=== PATIENT | female | born 1995 | race Caucasian/White ===

== ENCOUNTER 2017-09-26 11:19 | Emergency (ER) | payer SELFPAY ==
[2017-09-26] MEDS ORDERED: prednisoLONE Soln 15 MG/5 ML UD Cup PO ONE (11:44)
--- NOTE | 2017-09-26 11:45 | EDM.PDOC ---
ED HPI GENERAL MEDICAL PROBLEM - General Chief Complaint: ENT Problem Stated Complaint: COUGH, SORE THROAT Time Seen by Provider: 09/26/17 11:41 Source of Information: Reports: Patient History Limitations: Reports: No Limitations - History of Present Illness INITIAL COMMENTS - FREE TEXT/NARRATIVE: HISTORY AND PHYSICAL: []22-year-old female presenting with sore throat and cough History of Present Illness: []Patient became ill on Wednesday with 2 half days ago Using [id number] medications for discomfort Review of Systems: As per history of present illness and below otherwise all systems reviewed and negative. Past medical history: As per history of present illness and as reviewed below otherwise noncontributory. Surgical history: As per history of present illness and as reviewed below otherwise noncontributory. Social history: No reported history of drug or alcohol abuse. Family history: As per history of present illness and as reviewed below otherwise noncontributory. Physical exam: Alert and oriented female answering questions appropriately sounding quite hoarsely when she is speaking somewhat short of breath with full sentences HEENT: Atraumatic, normocehpalic, pupils reactive, negative for conjunctival pallor or scleral icterus, mucous membranes moist, throat clear, neck supple, nontender, trachea midline. Sinuses were nontender tympanic membrane mild erythema on the right, throat is erythematous. Lungs: Clear to auscultation, breath sounds equal bilaterally, chest non tender. Heart: S1S2, regular, negative for clicks, rubs, or JVD. Abdomen: Soft, nondistended, nontender. Negative for masses or hepatossplenmegaly. Negative for costovertebral tenderness. Pelvis: Stable nontender. Genitourinary: Deferred. Rectal: Deferred Extremities: Atraumatic, negative for cords or calf pain. Neurovascular unremarkable. Neuro: Awake, alert, oriented. Cranial nerves II through XII unremarkable. Cerebellum unremarkable. Motor and sensory unremarkable throughout. Exam nonfocal. Diagnostics: [Influenza, strep,] Therapeutics: [Prednisolone syrup] Impression: [acute pharyngitis] tonsillitis Plan: []Prednisolone syrup Amoxicillin Definitive disposition and diagnosis as appropriate pending reevaluation and review of above. Onset: Sudden Duration: Day(s): (2.5), Getting Worse Location: Reports: Head Throat Pain Score (Numeric/FACES): 6 - Related Data Allergies Allergy/AdvReac Type Severity Reaction Status Date / Time No Known Allergies Allergy Verified 09/26/17 11:38 Home Meds: Home Meds Amoxicillin 500 mg PO TID #21 tab.chew 09/26/17 [Rx] Prednisolone [IJD: Prelone 15 MG/5 ML] 30 mg PO BID #180 ml 09/26/17 [Rx] ED ROS ENT - Review of Systems Review Of Systems: ROS reveals no pertinent complaints other than HPI. ED EXAM, ENT - Physical Exam Exam: See Below (see dictation) Course - Vital Signs Last Recorded V/S: Last Vital Signs Temp 37.0 C 09/26/17 11:34 Pulse 97 09/26/17 11:34 Resp 16 09/26/17 11:34 BP 127/62 09/26/17 11:34 Pulse Ox 96 09/26/17 11:34 - Orders/Labs/Meds Orders: Active Orders 24 hr Category Date Time Status CULTURE STREP A CONFIRMATION [] Stat Lab 09/26/17 11:55 Results STREP SCRN A RAPID W CULT CONF [RM] Stat Lab 09/26/17 11:55 Results Meds: Medications Discontinued Medications Generic Name Dose Route Start Last Admin Trade Name Beckq PRN Reason Stop Dose Admin Prednisolone 30 mg 09/26/17 11:44 09/26/17 11:56 Orapred 15 Mg/5ml Soln PO 09/26/17 11:45 30 mg ONETIME ONE Administration Departure - Departure Time of Disposition: 12:37 Disposition: Home, Self-Care 01 Condition: Good Clinical Impression: Tonsillitis Pharyngitis Qualifiers: Pharyngitis/tonsillitis etiology: unspecified etiology Qualified Code(s): J02.9 - Acute pharyngitis, unspecified - Discharge Information Prescriptions: Amoxicillin 500 mg PO TID #21 tab.chew Prednisolone [IJD: Prelone 15 MG/5 ML] 30 mg PO BID #180 ml Referrals: PCP,None [Primary Care Provider] - Forms: ED Department Discharge Additional Instructions: The following information is given to patients seen in the emergency department who are being discharged to home. This information is to outline your options for follow-up care. We provide all patients seen in our emergency department with a follow-up referral. The need for follow-up, as well as the timing and circumstances, are variable depending upon the specifics of your emergency department visit. If you don't have a primary care physician on staff, we will provide you with a referral. We always advise you to contact your personal physician following an emergency department visit to inform them of the circumstance of the visit and for follow-up with them and/or the need for any referrals to a consulting specialist. The emergency department will also refer you to a specialist when appropriate. This referral assures that you have the opportunity for followup care with a specialist. All of these measure are taken in an effort to provide you with optimal care, which includes your followup. Under all circumstances we always encourage you to contact your private physician who remains a resource for coordinating your care. When calling for followup care, please make the office aware that this follow-up is from your recent emergency room visit. If for any reason you are refused follow-up, please contact the [facility] emergency department at and asked to speak to the emergency department charge nurse. prescriptions for prednisolone syrup to reduce the swelling in your throat you have been given prescription for amoxicillin antibiotics Please follow-up with your provider this week - My Orders Last 24 Hours: My Active Orders 09/26/17 11:55 CULTURE STREP A CONFIRMATION [RM] Stat STREP SCRN A RAPID W CULT CONF [RM] Stat - Assessment/Plan Last 24 Hours: My Active Orders 09/26/17 11:55 CULTURE STREP A CONFIRMATION [RM] Stat STREP SCRN A RAPID W CULT CONF [RM] Stat
== END 2017-09-26 12:57 | disposition home or self-care (01) ==
LOC: MW.ED 11:19
DX: J03.90 Acute tonsillitis, unspecified (principal)
CPT/HCPCS: 87081; 87804; 87880; 99283; A9270